=== PATIENT | male | born 1965 | race Two or more races ===

== ENCOUNTER 2017-01-28 10:48 | Emergency (ER) | payer BC, OTHER ==
[2017-01-28 11:15] VITALS: BP 123/75; PULSE 83; RESP 22; TEMP 97.8; O2SAT 98
[2017-01-28] MEDS ORDERED: APAP/HYDROCODONE 325/5 TAB PO ONE (11:23)
[2017-01-28] MEDS ORDERED: APAP/HYDROCODONE 325/5 TAB ONE (11:25)
== END 2017-01-28 12:10 | disposition home or self-care (01) ==
LOC: ED 10:48
DX: M54.5 Low back pain (principal); M25.531 Pain in right wrist
CPT/HCPCS: 99282